=== PATIENT | male | born 1945 ===

== ENCOUNTER 2018-03-04 10:52 | Emergency (ER) | payer BC ==
[2018-03-04 11:27] VITALS: BP 150/85
--- NOTE | 2018-03-04 11:32 | UC ---
Skin Complaint HPI - HPI Summary HPI Summary: A 72 y/o M presents to [facility] [place] with c/o sudden onset R forearm growth onset approx 1 week ago. Denies pain at location. Pt states it hasn't changed in size since onset. Pt has some concerns it could be a tick bite, states he spends a lot of time outdoors. Denies trauma to the area. This is SooYoung francheska Ryan, documenting for attending, Dr. Rl Fink MD. - History of Current Complaint Chief Complaint: UCSkin Time Seen by Provider: 03/04/18 11:25 Stated Complaint: SKIN COMPLAINT Hx Obtained From: Patient, Family/Public Health Policy Analyst Onset/Duration: Sudden Onset, Lasting Days - approx 1 week, Still Present Timing: Constant Onset Severity: Mild Current Severity: Mild Pain Intensity: 0 Pain Scale Used: 0-10 Numeric Location: Other - R forearm Character: Raised - Allergy/Home Medications Allergies/Adverse Reactions: Allergies Allergy/AdvReac Type Severity Reaction Status Date / Time MS Sulfa Antibiotics Allergy Unknown Verified 03/04/18 11:26 [Sulfa Antibiotics] Reaction Details Home Medications: Home Medications Amiodarone TAB* [Cordarone TAB*] 200 mg PO DAILY 03/04/18 [History Confirmed ] Sacubitril/Valsartan [Entresto 24-26 mg] 1 tab PO BID 03/04/18 [History Confirmed 03/04/18] Review of Systems Constitutional: Other - neg: fever Skin: Other - growth to R forearm All Other Systems Reviewed And Are Negative: Yes PMH/Surg Hx/FS Hx/Imm Hx Previously Healthy: No Endocrine History: Other Other Endocrine History: neg DM Cardiovascular History: Hypertension - Surgical History Surgical History: None - Family History Known Family History: Positive: Cardiac Disease Negative: Hypertension, Diabetes, Other - neg: high cholesterol - Social History Occupation: Retired Lives: With Family Alcohol Use: Daily Substance Use Type: None Smoking Status (MU): Former Smoker Physical Exam - Summary Physical Exam Summary: General: well-appearing, no pain distress Skin: warm, color reflects adequate perfusion, dry; Dorsum of R wrist about 1.5 cm, fibrous dome Head: normal Eyes: EOMI, VAN ENT: normal Neck: supple, nontender Respiratory: CTA, breath sounds present Cardiovascular: RRR Abdomen: soft, nontender Bowel: present Musculoskeletal: normal, strength/ROM intact Neurological: sensory/motor intact, A&O x3 Psychological: affect/mood appropriate Triage Information Reviewed: Yes Vital Signs: Initial Vital Signs Temp 98.9 F 03/04/18 11:23 Pulse 65 03/04/18 11:23 Resp 18 03/04/18 11:23 BP 150/85 03/04/18 11:23 Pulse Ox 99 03/04/18 11:23 Vital Signs Reviewed: Yes Course/Dx - Course Course Of Treatment: BP noted and advised to follow up with PCP. Medications reviewed. Allergies noted. THE RAISED AREA ON THE DORSUM OF THE RIGHT WRIST WAS FIRM TO PALPATION. NO OBVIOUS FLUID COLLECTION TO DRAIN. DISCUSSED I AND D ATTEMPT WITH THE PATIENT; HE DECLINED AT THIS TIME. WILL RX ABX AND F/U DERMATOLOGY IF NOT IMPROVED; RECHECK SOONER IF WORSE. - Diagnoses Provider Diagnoses: RIGHT WRIST RASH Discharge - Sign-Out/Discharge Documenting (check all that apply): Patient Departure - Discharge Plan Condition: Stable Disposition: HOME Prescriptions: DOXYcycline CAP(*) [DOXYcycline 100MG CAP(*)] 100 mg PO BID #20 cap Patient Education Materials: Acute Rash (ED) Referrals: [facility] [place] [facility] REFERRAL [Outside] Rambo Guevara MD [Medical Doctor] - Additional Instructions: FOLLOW UP WITH DERMATOLOGY. GET RECHECKED FOR ANY WORSENING OF YOUR CONDITION OR QUESTIONS OR CONCERNS. Your blood pressure was elevated during todays visit; please follow up with your primary care provider within a week for further evaluation. - Billing Disposition and Condition Condition: STABLE Disposition: Home
== END 2018-03-04 11:46 | disposition home or self-care (01) ==
LOC: UCEAST 10:52
DX: R21 Rash and other nonspecific skin eruption (principal); Z88.2 Allergy status to sulfonamides; Z87.891 Personal history of nicotine dependence
CPT/HCPCS: 99212; G0463